=== PATIENT | female | born 1960 | race Caucasian/White ===

== ENCOUNTER 2024-09-27 14:05 | Emergency (ER) | payer BC, SELFPAY ==
[2024-09-27] MEDS ORDERED: Bacitracin 1 PK ONE (15:46)
[2024-09-27] MEDS ORDERED: Boostrix 0.5 ML (Tdap) VIAL (>/=7 yrs of age) ONE (15:46)
== END 2024-09-27 16:08 | disposition home or self-care (01) ==
LOC: NAV ERS 14:05
DX: S61.234A Puncture wound without foreign body of right ring finger without damage to nail, initial encounter (principal); S61.213A Laceration without foreign body of left middle finger without damage to nail, initial encounter; X58.XXXA Exposure to other specified factors, initial encounter
CPT/HCPCS: 12001; 90471; 90715